=== PATIENT | female | born 1985 | race Caucasian/White ===

== ENCOUNTER 2016-07-22 11:30 | Outpatient (CLI) | payer MEDICAID ==
[~2016-07-22] VITALS: Ht 154.9 cm; Wt 79.9 kg
[~2016-07-22 11:30] MED LIST: DIPH25CA6
--- NOTE | 2016-07-22 12:06 | NSTRPT ---
NST Information Datetime Report Generated by CPN: 07/22/2016 12:06 Datetime: 07/22/2016 09:42 NST Information EGA: 39.0 Test Number: 5 Time on Monitor: 07/22/2016 10:14 Time off Monitor: 07/22/2016 10:39 NST Duration (Min): 25 Reason for NST: Diabetes Mellitus; Other Reason for NST Other: A1DM Test and Monitor Explained: Monitor Explained; Test Explained; Verbalized Understanding Pulse: 86 Resp: 17 SBP: 113 DBP: 69 Test Evaluation NST Interventions: PO Hydration; Reposition Patient Patient States Movement: Present Contraction Frequency: none FHR Baseline : 125 Variability: Moderate 6-25bpm Accelerations: 15X15 Decelerations: None FHR Category: Category I NST Results: Reactive Provider Notified: Dr Doe Comments: Pt to U/S, LASHANDA 6.8cm, cephalic FBS 79 1050-Report to Dr Doe, order received to send to triage. Report to Abby STEARNS. 1108-POC explaine d to pt, states understanding and denies further questions at this time. Pt to triage at this time. Datetime: 07/19/2016 09:58 NST Information EGA: 38.4 Test Number: 4 Time on Monitor: 07/19/2016 10:19 Time off Monitor: 07/19/2016 10:50 NST Duration (Min): 31 Reason for NST: Diabetes Mellitus; Other Reason for NST Other: A1DM Test and Monitor Explained: Monitor Explained; Test Explained; Verbalized Understanding Pulse: 82 Resp: 17 SBP: 114 DBP: 70 Test Evaluation NST Interventions: PO Hydration; Food Given; Reposition Patient Patient States Movement: Present Contraction Frequency: q2-4min, mild FHR Baseline : 130 Variability: Moderate 6-25bpm Accelerations: 15X15 Decelerations: None FHR Category: Category I NST Results: Reactive Comments: To u/s, LASHANDA 11.5cm, cephalic FBS 96 1051-Pt home undelivered with labor precautions, kick count instructions reviewed and follo w up NST appt given. States understanding and denies further questions at this time. Electronically Signed By E-Signature: with User ID: [id number] Datetime: 07/15/2016 09:57 NST Information EGA: 38.0 NST Duration (Min): 27 Datetime: 07/12/2016 10:37 NST Information EGA: 37.4 NST Duration (Min): 20 Datetime: 07/08/2016 10:34 NST Information EGA: 37.0 Datetime: 07/08/2016 10:00 NST Duration (Min): 25
[2016-07-22 12:36] VITALS: BP 116/78; PULSE 76; Ht 154.9 cm; Wt 79.9 kg
[2016-07-22] MEDS ORDERED: PRENAT PO (12:37)
[2016-07-22] MEDS: LACTATED RINGER'S 1,000 ML IV SCH ×2 (12:55→15:00)
--- NOTE | 2016-07-22 13:02 | NSTRPT ---
NST Information Datetime Report Generated by CPN: 07/22/2016 13:02 Datetime: 07/22/2016 09:42 Electronically Signed By E-Signature: with User ID: [id number]
--- NOTE | 2016-07-22 15:44 | RADRPT ---
PROCEDURE: US OB. CLINICAL INDICATION: Low LASHANDA , pain TECHNIQUE: Transabdominal views of the pelvis are available for review. COMPARISON: No prior studies are available for comparison. FINDINGS: There is a single intrauterine gestation in a vertex position. The heart rate is noted at 126 bpm. The placenta is anterior. The LASHANDA measures 11.6 cm. RPTAT: AA IMPRESSION: Normal LASHNADA. .Berto Duran MD, MD Date Time Electronically viewed and signed by .Berto Duran MD, on 07/22/2016 15:44 .S/
== END 2016-07-22 16:35 | disposition home or self-care (01) ==
LOC: OBT 11:30 → L-D 11:30 → OBT 16:35
PROVIDERS: ATTEND Obstetrics & Gynecology
DX: O41.03X0 Oligohydramnios, third trimester, not applicable or unspecified (principal); O24.913 Unspecified diabetes mellitus in pregnancy, third trimester; Z3A.37 37 weeks gestation of pregnancy
CPT/HCPCS: 36415; 76815; 96360; 96361; J7120; Z7500; G0463

== ENCOUNTER 2016-07-26 11:37 | Inpatient (IN) | payer MEDICAID ==
[~2016-07-26] VITALS: Ht 157.5 cm; Wt 78.2 kg
[~2016-07-26 11:37] MED LIST changes: -DIPH25CA6; +PRENAT PO
[2016-07-26 12:30] VITALS: Ht 157.5 cm; Wt 78.2 kg
[2016-07-26 12:31] VITALS: BP 120/83; PULSE 93; RESP 18
[2016-07-26] MEDS ORDERED: BUTORPHANOL 2 MG INJ IV PRN (13:00)
[2016-07-26] MEDS ORDERED: CARBOPROST 250 MCG INJ IM PRN (13:00)
[2016-07-26] MEDS ORDERED: IBUPROFEN 600 MG TAB PO PRN (13:00)
[2016-07-26] MEDS ORDERED: MISOPROSTOL 200 MCG TAB PR PRN (13:00)
[2016-07-26] MEDS ORDERED: LIDOCAINE 1% (MPF) 30 ML INJ INJ PRN (13:00)
[2016-07-26] MEDS ORDERED: METHYLERGONOVINE 0.2 MG INJ IM PRN (13:00)
[2016-07-26] MEDS ORDERED: OXYTOCIN 30 UNITS/LR 500 ML IV PRN (13:00)
[2016-07-26] MEDS ORDERED: OXYTOCIN 30 UNITS/LR 500 ML IV SCH ×3 (13:00→13:30)
[2016-07-26 13:16] LABS: ADD SCAN DIFF NO
[2016-07-26] MEDS: LACTATED RINGER'S 1,000 ML IV SCH ×2 (13:18→18:57)
[2016-07-26 13:20] LABS: BASOPHILS % 0.3 % (0.0-2.0); EOSINOPHILS # 0.1 10^3/ul (0.0-0.5); EOSINOPHILS % 1.1 % (0.0-7.0); HEMATOCRIT 37.1 % (37.0-47.0); HEMOGLOBIN 12.6 g/dl (12.0-16.0); LYMPHOCYTES # 1.7 10^3/ul (0.8-2.9); LYMPHOCYTES % 24.9 % (15.0-51.0); MEAN CORPUSCULAR HEMOGLOBIN 29.6 pg (29.0-33.0); MEAN CORPUSCULAR VOLUME 87.3 fl (82.0-101.0); MEAN PLATELET VOLUME 10.5 fl (7.4-10.4); MONOCYTE # 0.4 10^3/ul (0.3-0.9); MONOCYTES % 6.3 % (0.0-11.0); NEUTROPHIL # 4.7 10^3/ul (1.6-7.5); NEUTROPHILS % 67.3 % (39.0-77.0); PLATELET COUNT 327 10^3/UL (140-415); RED BLOOD COUNT 4.25 10^6/ul (4.20-5.40); RED CELL DISTRIBUTION WIDTH 14.3 % (11.5-14.5)
[2016-07-26 13:34] LABS: INR 0.92; PARTIAL THROMBOPLASTIN TIME 27.8 Sec (25.0-35.0); PROTIME 12.4 Sec (12.2-14.2)
[2016-07-26] MEDS: DEXTROSE 5%-LR 1,000 ML IV SCH ×2 (14:35→22:35)
[2016-07-26] MEDS ORDERED: LACTATED RINGER'S 1,000 ML IV PRN (15:00)
--- NOTE | 2016-07-26 23:19 | HP ---
Date/Time of Note Date/Time of Note DATE: 07/26/16 TIME: 23:16 OB - History Hx of Present Chief Complaint: induction of labor Estimated Due Date: July 29, 2016 : 4 Para: 3 Spontaneous : 0 Therapeutic : 0 Care: Good Care Ultrasounds: Normal mid trimester US Obstetrical Complications: Gestational Diabetes Medical Complications: None Past Family/Social History * Past Medical, Surgical, Family and Obstetric Histories reviewed from chart. GBS Status: Negative OB Admission Exam Vital Signs Vital Signs Vital Signs Date Time Temp Pulse Resp B/P Pulse Ox O2 Delivery O2 Flow Rate FiO2 07/26/16 12:31 98.2 93 18 120/83 Room Air Physical Exam HEENT: WNL Heart: Rhythm Normal Lungs: Clear Abdomen: WNL Extremities: Normal Heart Rate: 140's Accelerations: Accelerations Present Decelerations: No Decelerations Varibility: Moderate Last 72 hourBlood Glucose Bedside Glucose - 72 Hours Test 07/26/16 17:15 07/26/16 21:04 Bedside Glucose 83mg/dL (70-220) 89mg/dL (70-220) Last 72 hours Lab Results CBC & BMP 07/26/16 12:58 OB Assessment/Plan Reason for admission: induction of labor Plan: Induction KOLBY CARREON MD July 26, 2016 23:19
--- NOTE | 2016-07-26 23:21 | LDN ---
Date/Time of Note Date/Time of Note DATE: 07/26/16 TIME: 23:19 Delivery Summary Weeks of Gestation 39 weeks and 4 days Placenta Delivered: Spontaneously Meconium: none Episiotomy: No Perineal laceration: 0 Anesthesia type: None Estimated blood loss: 200 Sponge & Needle done & correct: Yes All needle counts correct: Yes Any foreign bodies felt in the: No Problems: Infant Delivery Information Sex Infant Sex: female Apgars 1 Minute: 9 5 Minute: 9 Suctioning Nose & mouth suctioned at marcella: Yes Delee suction performed: No Umbilical Cord Umbilical cord with: 3 Vessels Cord presentations: no nuchal cord Cord Blood was obtained: Yes Mother & Baby Disposition Disposition Mom & Baby to Maternity; Good: Yes KOLBY CARREON MD July 26, 2016 23:21
[2016-07-27 00:45] VITALS: BP 114/64; PULSE 80; RESP 19
[2016-07-27] MEDS ORDERED: ACETAMINOPHEN 325 MG TAB PO PRN (01:30)
[2016-07-27] MEDS ORDERED: ACETAMINOPHEN/CODEINE #3 TAB PO PRN (01:30)
[2016-07-27] MEDS ORDERED: DIBUCAINE 1% 30 GM OINT PR PRN (01:30)
[2016-07-27] MEDS ORDERED: WITCH HAZEL/GLYCERIN PAD PR PRN (01:30)
[2016-07-27] MEDS ORDERED: CARBOPROST 250 MCG INJ IM PRN (01:30)
[2016-07-27] MEDS ORDERED: BENZOCAINE 20% 56 ML SPRAY TOP PRN (01:30)
[2016-07-27] MEDS ORDERED: METHYLERGONOVINE 0.2 MG INJ IM PRN (01:30)
[2016-07-27] MEDS ORDERED: MISOPROSTOL 200 MCG TAB PR PRN (01:30)
[2016-07-27] MEDS ORDERED: OXYTOCIN 30 UNITS/LR 500 ML IV PRN (01:30)
[2016-07-27] MEDS: LACTATED RINGER'S 1,000 ML IV* SCH ×2 (03:29→09:08)
[2016-07-27] MEDS: IBUPROFEN 600 MG TAB PO SCH ×4 (05:51→23:22)
[2016-07-27 08:00] VITALS: BP 109/56; PULSE 69; RESP 16
[2016-07-27 08:34] LABS: ADD SCAN DIFF NO
[2016-07-27 08:40] LABS: BASOPHILS % 0.3 % (0.0-2.0); EOSINOPHILS % 0.3 % (0.0-7.0); HEMATOCRIT 39.1 % (37.0-47.0); HEMOGLOBIN 13.1 g/dl (12.0-16.0); LYMPHOCYTES # 1.8 10^3/ul (0.8-2.9); LYMPHOCYTES % 13.6 % (15.0-51.0); MEAN CORPUSCULAR HEMOGLOBIN 29.6 pg (29.0-33.0); MEAN CORPUSCULAR HGB CONC 33.5 g/dl (32.0-37.0); MEAN CORPUSCULAR VOLUME 88.3 fl (82.0-101.0); MEAN PLATELET VOLUME 10.1 fl (7.4-10.4); MONOCYTE # 0.9 10^3/ul (0.3-0.9); MONOCYTES % 6.7 % (0.0-11.0); NEUTROPHIL # 10.5 10^3/ul (1.6-7.5); NEUTROPHILS % 78.7 % (39.0-77.0); PLATELET COUNT 273 10^3/UL (140-415); RED BLOOD COUNT 4.43 10^6/ul (4.20-5.40); RED CELL DISTRIBUTION WIDTH 14.6 % (11.5-14.5); WHITE BLOOD COUNT 13.3 10^3/ul (4.8-10.8)
[2016-07-27] MEDS: SENNA/DOCUSATE NA (8.6MG/50MG) TAB PO SCH ×2 (08:55→21:45)
--- NOTE | 2016-07-27 10:02 | PN ---
Date/Time of Note Date/Time of Note DATE: 07/27/16 TIME: 10:01 OB Subjective Subjective Subjective Post normal vaginal delivery day 1 Afebrile abdomen soft uterus firm lochia normal extremity normal ambulation encouraged DONNA OATES MD July 27, 2016 10:01
[2016-07-27 12:00] VITALS: BP 102/61; RESP 17
[2016-07-27 16:00] VITALS: BP 117/67; PULSE 67; RESP 16
[2016-07-27 20:00] VITALS: BP 116/67; PULSE 77; RESP 18
[2016-07-28 04:00] VITALS: BP 102/59; PULSE 66; RESP 20
[2016-07-28] MEDS: IBUPROFEN 600 MG TAB PO SCH ×2 (05:37→11:26)
[2016-07-28 07:30] VITALS: BP 114/70; PULSE 66; RESP 18
[2016-07-28] MEDS ORDERED: DIPHTH/TET/ACEL PERTUSS (ADULT) 0.5 ML VIAL IM* ONE (09:00)
[2016-07-28] MEDS: SENNA/DOCUSATE NA (8.6MG/50MG) TAB PO SCH (09:08)
--- NOTE | 2016-07-29 12:47 | DS ---
Date/Time of Note Date/Time of Note DATE: 07/29/16 TIME: 12:44 Discharge Summary Admission/Discharge Info Admit Date/Time July 26, 2016 at 11:37 Discharge Date/Time July 28, 2016 at 17:45 Final Diagnosis Term normal vaginal delivery Patient Condition: Good Procedures Normal spontaneous vaginal delivery Hx of Present Illness Term Hospital Course Satisfactory uneventful Home Meds Reported Medications Multivit/Min/Fol Ac/Iron/Pren* ( S*) 1 Tab Tab, 1 TAB PO DAILY, TAB 07/22/16 Discontinued Reported Medications Diphenhydramine Hcl (Benadryl) 25 Mg Cap 10/22/09 Follow-up Plan instructions given recommended to make appointment with the clinic 2 weeks Primary Care Provider Care Physician No Primary Time spent on discharge: > 30 minutes DONNA OATES MD July 29, 2016 12:47
== END 2016-07-28 17:45 | disposition home or self-care (01) | DRG 775 ==
LOC: L-D 11:37 → PP1 07-27 00:46 → EDSTATUS 07-29 11:20
PROVIDERS: ADMIT Obstetrics & Gynecology; ATTEND Obstetrics & Gynecology
PROC: 10E0XZZ Delivery of Products of Conception, External Approach (ICD-10-PCS; principal; 2016-07-26)
DX: O24.429 Gestational diabetes mellitus in childbirth, unspecified control (principal); Z37.0 Single live birth; Z3A.39 39 weeks gestation of pregnancy
CPT/HCPCS: 82947; 82962; 85025; 85610; 85730; 86592; 86900; 86901; 87340; 90715; 99464; J2590; J7120; J7121